=== PATIENT | female | born 1965 | race Caucasian/White ===

== ENCOUNTER 2018-04-30 23:50 | Emergency (ER) | payer OTHER ==
[~2018-04-30] VITALS: Ht 165.1 cm; Wt 72.6 kg
[2018-04-30] MEDS ORDERED: NACL 0.9% 1,000 ML IV ONE (23:54)
[2018-05-01] MEDS ORDERED: ASPIRIN 81 MG TAB.CHEW PO ONE
[2018-05-01 00:32] LABS: CALCIUM 8.9 mg/dL (8.4-11.0); CREATININE 0.68 mg/dL (0.55-1.30); POTASSIUM 4.2 mmol/L (3.5-5.1)
[2018-05-01 00:37] LABS: PROTHROMBIN TIME 9.8 SECS (9.5-12.5)
[2018-05-01 00:39] LABS: ALBUMIN 3.5 g/dL (3.4-4.8); TOTAL BILIRUBIN 0.7 mg/dL (0.0-1.0)
[2018-05-01 00:40] VITALS: BP_SYST 159
[2018-05-01 00:40] LABS: BASOPHILS % (AUTO) 0.3 % (0.0-2.0); EOSINOPHILS # (AUTO) 0.2 K/uL (0.0-0.4); EOSINOPHILS % (AUTO) 1.4 % (0.0-4.0); HEMATOCRIT 38.7 % (36-48); HEMOGLOBIN 12.4 g/dL (12.0-16.0); LYMPHOCYTES # (AUTO) 5.2 K/uL (1.0-5.5); LYMPHOCYTES % (AUTO) 40.3 % (20.5-51.5); MEAN CORPUSCULAR HEMOGLOBIN 25 pg (27-31); MEAN CORPUSCULAR HGB CONC 32 % (32-36); MEAN CORPUSCULAR VOLUME 77 fL (79.0-98.0); MONOCYTES # (AUTO) 0.6 K/uL (0.0-1.0); MONOCYTES % (AUTO) 4.7 % (1.7-9.3); NEUTROPHILS # (AUTO) 6.8 K/uL (1.8-7.7); PLATELET COUNT (AUTO) 428 K/uL (130-430); RED BLOOD CELL COUNT(AUTO) 5.05 MIL/uL (4.2-6.2); RED CELL DISTRIBUTION WIDTH 16.6 % (9.0-15.0); WHITE BLOOD COUNT (AUTO) 12.8 K/uL (4.8-10.8)
--- NOTE | 2018-05-01 00:55 | NUR ---
Pt placed to ER bed 04, triaged at bedside.
--- NOTE | 2018-05-01 01:06 | NUR ---
EKG done at bedside.
--- NOTE | 2018-05-01 01:10 | NUR ---
PT came into the ED for palpitations that have been happening for the past week. Pt says that she denies chest pain. Noticed that she her heart is "racing." Denies HX of palpitations in the past. Says she has HX of hypothyroidism and that she was taking a natural supplement a few weeks ago for hypothyroidism. Denies SOB, SIMON,nausea or diarrhea. Pt says that she had one episode of vomiting last night. No other complaints/injuries noted. Will cont. to monitor.
--- NOTE | 2018-05-01 01:11 | NUR ---
ER Dr. Corona at bedside examining patient.
[2018-05-01 01:34] LABS: NEUTROPHILS % (AUTO) 53.3 % (40.0-70.0)
[2018-05-01] MEDS ORDERED: NACL 0.9% 1,000 ML IV ONE (01:45)
[2018-05-01] MEDS ORDERED: LORazepam 2 MG/ML VIAL (FOR ER USE) IVP ONE ×2 (01:45→04:00)
--- NOTE | 2018-05-01 01:54 | NUR ---
Pt medicated with ativan IVP per MD order. Tolerating well. Will cont. to monitor.
--- NOTE | 2018-05-01 02:00 | NUR ---
Pt resting comfortably in bed. No signs of distress.
[2018-05-01 02:42] LABS: FREE T4 (FREE THYROXINE) 0.9 ng/dL (0.6-1.6); THYROID STIMULATING HORMONE 5.07 uIu/mL (0.34-4.82)
--- NOTE | 2018-05-01 03:00 | NUR ---
Pt sleeping in bed. Cont. to monitor. No signs of distress.
[2018-05-01 03:04] LABS: BILIRUBIN,URINE NEGATIVE (NEGATIVE); BLOOD, URINE NEGATIVE (NEGATIVE); CLARITY/URINE CLEAR (CLEAR); COLOR,URINE YELLOW (YELLOW); GLUCOSE,URINE NEGATIVE (NEGATIVE); KETONES,URINE NEGATIVE (NEGATIVE); LEUKOCYTE ESTERASE ,URINE TRACE (NEGATIVE); NITRITE, URINE NEGATIVE (NEGATIVE); PH,URINE 7.5 (5.0-8.0); PROTEIN URINE NEGATIVE (NEGATIVE); UROBILINOGEN,URINE 0.2 (0.2-1.0)
[2018-05-01 03:46] LABS: BACTERIA,URINE FEW /HPF (None Seen); RBC,URINE 0-3 /HPF (0-3)
--- NOTE | 2018-05-01 04:00 | NUR ---
Noted heart rate of [address] Corona notified.
[2018-05-01 04:20] VITALS: BP_SYST 126
--- NOTE | 2018-05-01 04:20 | NUR ---
Patient given written and verbal discharge instructions and verbalizes understanding. ER MD Dr. Corona discussed with patient the results and treatment provided. Patient in stable condition. ID arm band removed. IV catheter removed intact and dressing applied, no active bleeding. Rx of ativan given. Patient educated on pain management and to follow up with PMD within 2-3 days. Pain Scale 0/10. Opportunity for questions provided and answered. Medication side effect fact sheet provided.
== END 2018-05-01 04:20 | disposition home or self-care (01) ==
LOC: SED 23:50
DX: R00.2 Palpitations (principal); E05.90 Thyrotoxicosis, unspecified without thyrotoxic crisis or storm; R03.0 Elevated blood-pressure reading, without diagnosis of hypertension
CPT/HCPCS: 36415; 71045; 80053; 81000; 82550; 83690; 84439; 84443; 84479; 84484; 85025; 85610; 85730; 87086; 93005; 99284; J2060; J7030 ×2